=== PATIENT | female | born 1995 | race Two or more races ===

== ENCOUNTER 2022-05-08 18:40 | Emergency (ER) | payer OTHER ==
[~2022-05-08] VITALS: Ht 162.6 cm; Wt 65.3 kg
[~2022-05-08 18:40] MED LIST: CEFADROXIL500 MG PO; ULTRACET PO
[2022-05-08] MEDS ORDERED: MOTRIN 600 MG (18:54)
== END 2022-05-09 | disposition home or self-care (01) ==
LOC: ER 18:40
DX: O36.4XX0 Maternal care for intrauterine death, not applicable or unspecified (principal); Z3A.26 26 weeks gestation of pregnancy